=== PATIENT | female | born 1985 | race Caucasian/White ===

== ENCOUNTER → 2019-01-05 | Day surgery (SDC) | payer OTHER ==
[~2019-01-05] MED LIST: Adacel (T-DAP) 0.5 ML SYRINGE ONE
== END ==
LOC: NAV ER/OP 17:12
PROVIDERS: ATTEND Family Medicine
DX: S81.812A Laceration without foreign body, left lower leg, initial encounter (principal); W26.8XXA Contact with other sharp object(s), not elsewhere classified, initial encounter
CPT/HCPCS: 90715